=== PATIENT | female | born 1955 | race Caucasian/White ===

== ENCOUNTER 2018-10-29 14:11 | Outpatient (CLI) | payer OTHER | END 2018-10-29 14:12 | disposition home or self-care (01) | LOC: BICMAMMO 14:11 | PROVIDERS: ATTEND Internal Medicine | DX: Z12.31 Encounter for screening mammogram for malignant neoplasm of breast (principal) | CPT/HCPCS: 77063; 77067 ==

== ENCOUNTER 2019-02-21 08:16 | Observation (INO) | payer OTHER ==
[2019-02-21] MEDS ORDERED: Aspirin Chewable 81 MG TAB ONE (08:36)
[2019-02-21] MEDS ORDERED: Morphine 4 MG/ML VIAL ONE (08:36)
[2019-02-21 08:55] LABS: #Basophils 0.2 thou/uL (0.0-0.2); #Eosinphils 0.4 thou/uL (0.0-0.7); #Lymphocytes 1.9 thou/uL (1.20-3.40); #Monocytes 0.9 thou/uL (0.11-0.59); #Neutrophils 6.7 thou/uL (1.40-6.50); %Basophils 1.8 % (0.0-1.0); %Eosinophils 3.6 % (0.0-10.0); %Neutrophils 66.7 % (42.0-75.0); Hemoglobin 13.4 g/dL (12.0-16.0); Mean Corpuscular HGB CONC 32.8 g/dL (32.0-36.0); Mean Corpuscular Hemoglobin 32.8 pg (27.0-31.0); Mean Corpuscular Volume 99.8 fL (78.0-98.0); Mean Platelet Volume 8.3 fL (7.4-10.4); Platelet Count 247 thou/uL (130-400); RBC Distribution Width 12.1 % (11.5-14.5); Red Blood Cell (RBC) Count 4.08 mill/uL (4.20-5.40)
--- NOTE | 2019-02-21 08:57 | RAD ---
EXAM: Chest Two Views 02/21/2019 8:53 AM HISTORY: Chest pain COMPARISON: September 27, 2018 FINDINGS: Heart: Normal in size and contour. Pulmonary vessels: Normal. Costophrenic angles: There is a tiny right pleural effusion Lungs: Chronic lung changes are stable. There are patchy interstitial opacities that appears slightly more prominent in the right lower lobe. Pneumothorax: None. Osseous structures:Stable prominent compression abnormality at T12 is unchanged. There is diffuse ost eopenia. There is a stable left total shoulder prosthesis Additional findings: None. IMPRESSION: Patchy interstitial opacities in the right lower lobe with small right pleural effusion may reflect a n atypical infectious process with small right parapneumonic effusion. Recommend correlation with clinical examination for any symptoms and signs of pneumonia.
[2019-02-21 09:19] LABS: ALT (SGPT) 16 U/L (8-55); AST (SGOT) 25 U/L (5-34); Albumin 4.1 g/dL (3.4-4.8); Alkaline Phosphatase 93 U/L (40-150); Anion Gap 15 mmol/L (10-20); BUN (Urea Nitrogen) 7 mg/dL (9.8-20.1); Bilirubin, Total 0.6 mg/dL (0.2-1.2); CK (CPK) 58 U/L (29-168); Calc. Creatinine Clearance 0 mL/min (70-130); Calcium 9.6 mg/dL (7.8-10.44); Carbon Dioxide 23 mmol/L (23-31); Chloride 96 mmol/L (98-107); Estimated GFR-MDRD Greater than 90; Globulin 3.4 g/dL (2.4-3.5); Glucose 106 mg/dL (80-115); Lipase 20 U/L (8-78); Potassium 4.7 mmol/L (3.5-5.1); Protein, Total 7.5 g/dL (6.0-8.3); Sodium 129 mmol/L (136-145)
[2019-02-21] MEDS ORDERED: cefTRIAXone\\ROCEPHIN 1 GM VIAL ONE (09:42)
[2019-02-21] MEDS ORDERED: Azithromycin 250 MG TAB ONE (09:42)
[2019-02-21] MEDS ORDERED: Sodium Chloride 0.9% 100 ML ONE (09:42)
[2019-02-21 11:58] VITALS: BMI 17.5
[2019-02-21] MEDS: Nitroglycerin 2% Ointment 1 INCH/1 GM Packet TOP SCH ×3 (12:56→23:20)
[2019-02-21 14:14] LABS: Troponin I Less than 0.010 ng/mL (< 0.028)
[2019-02-21] MEDS ORDERED: HYDROcodone/Acetaminophen 7.5/325 mg Tablet PO PRN (14:36)
[2019-02-21] MEDS ORDERED: PROVENTIL INHALER 6.7 G (200 INHALATIONS) INH PRN (14:48)
[2019-02-21] MEDS ORDERED: ALPRAZolam 0.5 MG TAB PO PRN (14:48)
[2019-02-21] MEDS ORDERED: Morphine 2 MG/ML SYRINGE SLOW IVP PRN (15:41)
[2019-02-21] MEDS: HYDROcodone/Acetaminophen 7.5/325 mg Tablet PO PRN ×2 (15:45→20:37)
--- NOTE | 2019-02-21 15:52 | CT ---
CHEST CT WITHOUT CONTRAST: HISTORY: The patient fell last Thursday. Landed on her chest. Chest pain. Evaluate for chest contusion. COMPARISON: None. FINDINGS: Limited evaluation of the mediastinum due to the lack of IV contrast. No mass, lymphadenopathy, or h ematoma. Heart size is within normal limits. There are coronary artery calcifications. Atheroscler osis of a nonaneurysmal aorta. Heart size is normal. No significant pericardial fluid. Visualized upper solid organs are unremarkable. Trachea and central bronchi are patent. Scarring in the lung apices. No pleural effusion or pneumot horax. Dependent atelectatic changes are noted. RIGHT LUNG: No masses or consolidation. LEFT LUNG: No masses or consolidation. Vertebra plana at the inferiormost thoracic vertebral body suggesting a remote severe compression fra cture. Additional thoracic spine fractures are not appreciated. Visualized left and right bony thor ax is unremarkable. Limited evaluation of the left upper ribs due to beam-attenuation artifact from the left humeral prosthesis. No obvious contusion with regards to the anterior chest wall. IMPRESSION: No acute posttraumatic change. POS: [facility]
[2019-02-21 17:39] LABS: Troponin I Less than 0.010 ng/mL (< 0.028)
[2019-02-21] MEDS ORDERED: Lisinopril 20 MG TAB PO SCH (21:00)
[2019-02-21] MEDS ORDERED: Atorvastatin Calcium 20 MG TAB PO SCH (21:00)
--- NOTE | 2019-02-21 21:39 | HP ---
CHIEF COMPLAINT: Chest pain. HISTORY OF PRESENT ILLNESS: This patient is a 63-year-old female, who reports she recently saw her compensation and benefits manager, Dr. Malik, who did a full and thorough evaluation of her, which she reports was completely unremarkable. Reports she had ultrasounds of the heart, carotids, and lower extremities, all of which were unremarkable. The patient reports she was in her usual state of good health until Thursday, at which time she tripped over a trash can, fell onto a [employer] planter which she broke, she hit her chest area and bumped her head. She had a significant amount of pain, in fact her family says she actually passed out momentarily because she was having some much discomfort. She recovered from that and by yesterday was feeling back to normal and did a lot of work around the house including a lot of physical work including sweeping. She went to bed last night feeling well, woke up about 3 o'clock in the morning, having significant pain feeling like someone was behind her and squeezing her around the chest. She got up, put on a bra that was tight for some compression said that helped a little. She took 2 tramadol, which she had at home which did not help at all. She denies any fever or cough and her only difficulty breathing is related to the discomfort she feels with attempting to take a deep breath. REVIEW OF SYSTEMS: All other systems reviewed, all pertinent positives and negatives noted in the history of present illness. PAST MEDICAL HISTORY: Notable for PTSD and asthma. She had a colonoscopy done a couple of weeks ago, which was normal, but they felt she might have aspirated a little bit at that time. I watched her for a couple of hours and she was ultimately discharged to home. PAST SURGICAL HISTORY: Hysterectomy, tubal ligation, and left humeral head fracture repair. FAMILY HISTORY: Mother had heart disease and CVA. SOCIAL HISTORY: The patient smokes 5 cigarettes a day. She drinks 4 to 5 beers per night. Denies drugs. She is . She is full code. Her , Butch, would be her surrogate decision maker should that become necessary. ALLERGIES: NONE. CURRENT MEDICATIONS: 1. Albuterol 2 puffs q.6 p.r.n. 2. Aspirin 81 mg daily. 3. Lexapro 20 mg daily. 4. Escitalopram 10 mg po daily 5. Atorvastatin 20 mg po q hs 6. Alprazolam 0.5 mg po tid p.r.n. 7. Tramadol 50 two po q 6 hours p.r.n. PHYSICAL EXAMINATION: VITAL SIGNS: Blood pressure is 167/78, pulse 84, respirations 17, O2 sats 98% on room air, and temperature is 98.3. GENERAL APPEARANCE: Thin, age-appropriate female. She is in no significant distress. She is awake, alert, and oriented. She does appear to be uncomfortable. HEENT: PERRL. No OP lesions. NECK: Supple and symmetric. HEART: Regular rate and rhythm without murmurs, gallops, or rubs. LUNGS: Clear to auscultation bilaterally with no wheezes or rales. ABDOMEN: Soft, nontender, and nondistended. Positive bowel sounds. EXTREMITIES: No cyanosis, clubbing, or edema. SKIN: She does have some ecchymoses over the right upper extremity and small superficial abrasion on the right forehead. MUSCULOSKELETAL: Reveals significant tenderness to palpation primarily along the parasternal borders bilaterally more so on the right. NEUROLOGIC: The patient appears to be fully intact. No focal deficits. LABORATORY DATA: White count 10, hemoglobin 13.4, platelets 247. Sodium 129, potassium 4.7, chloride 96, CO2 is 23, BUN 7, and creatinine 0.65. LFTs are normal. Troponin negative x2. DIAGNOSTIC DATA: EKG shows no ST-segment elevation with sinus rhythm at 82 beats per minute. Chest x-ray shows what appears to be some possible right lower lobe infiltrate, which by my review is extremely faint. IMPRESSION AND PLAN: 1. Chest pain. This appears to be purely musculoskeletal in nature related to her fall and then likely overdoing her physical activity. Subsequent, it does not appear to be significantly cardiac. The patient will remain on tele and continued another set of enzymes to be certain. She certainly does have risk factors of the smoking and some family history. We will treat her musculoskeletal pain with pain medicines, both IV morphine and p.o. [place]. I will also give some muscle relaxer. She does describe some component of that as well. 2. Possible pneumonia. We will obtain a CT of the chest. I suspect this is actually more pulmonary contusion than infection. She has no white count, fever , or cough and certainly comes on the heels of significant injury. She received Rocephin and azithromycin in the emergency department that will carry her through today. We will not automatically renew any antibiotics until we have a chance to assess it further. 3. Hyponatremia. The patient has a history of hyponatremia on previous visits going back to 2017. She is very slightly lower now, which was then. I will not aggressively intervened on that, could be slightly worse because of the pulmonary contusion causing some SIADH. 4. History of asthma. We will continue with the bronchodilators. 5. History of posttraumatic stress disorder. We will continue with the alprazolam and citalopram. 6. History of hypertension. Continue lisinopril. 7. History of hyperlipidemia. Continue atorvastatin. Job ID: [id number] [facility]
[2019-02-22] MEDS: Cyclobenzaprine 10 MG TAB PO PRN ×2 (02:42→09:13)
[2019-02-22] MEDS: traMADol HCl 50 MG TAB PO PRN ×2 (02:42→09:14)
[2019-02-22] MEDS: Nitroglycerin 2% Ointment 1 INCH/1 GM Packet TOP SCH (06:08)
[2019-02-22 07:01] LABS: #Basophils 0.1 thou/uL (0.0-0.2); #Eosinphils 0.5 thou/uL (0.0-0.7); #Lymphocytes 2.3 thou/uL (1.20-3.40); #Monocytes 1.2 thou/uL (0.11-0.59); #Neutrophils 4.1 thou/uL (1.40-6.50); %Basophils 1.5 % (0.0-1.0); %Eosinophils 5.6 % (0.0-10.0); %Lymphocytes 28.5 % (21.0-51.0); %Monocytes 14.7 % (0.0-10.0); %Neutrophils 49.7 % (42.0-75.0); Hemoglobin 12.2 g/dL (12.0-16.0); Mean Corpuscular HGB CONC 33.6 g/dL (32.0-36.0); Mean Corpuscular Hemoglobin 33.8 pg (27.0-31.0); Mean Platelet Volume 7.8 fL (7.4-10.4); Platelet Count 212 thou/uL (130-400); RBC Distribution Width 11.7 % (11.5-14.5); Red Blood Cell (RBC) Count 3.62 mill/uL (4.20-5.40); White Blood Cell (WBC) Count 8.2 thou/uL (4.8-10.8)
[2019-02-22 07:17] LABS: Anion Gap 11 mmol/L (10-20); BUN (Urea Nitrogen) 5 mg/dL (9.8-20.1); Calc. Creatinine Clearance 73 mL/min (70-130); Calcium 9.3 mg/dL (7.8-10.44); Carbon Dioxide 25 mmol/L (23-31); Chloride 100 mmol/L (98-107); Estimated GFR-MDRD Greater than 90; Glucose 95 mg/dL (80-115); Potassium 4.1 mmol/L (3.5-5.1); Sodium 132 mmol/L (136-145)
--- NOTE | 2019-02-22 08:32 | RAD ---
XR Thoracic Spine 3 V STANDARD History: [Fall with pain] Comparison: Chest CT prior day Findings: Similar appearance of the compression fracture at T12 with near complete anterior height lo ss, vertebral plana. No significant retropulsion. No new superimposed fracture. Bones are osteopenic. Visualized portion of the mediastinum is unremarkable. Impression: No superimposed vertebral fracture. Known T12 vertebral plana.
[2019-02-22] MEDS ORDERED: Aspirin Chewable 81 MG TAB PO SCH (09:00)
[2019-02-22] MEDS ORDERED: Escitalopram Oxalate 10 mg Tablet PO SCH (09:00)
[2019-02-22 11:34] VITALS: BP 115/61; TEMP 97.7
--- NOTE | 2019-02-22 11:59 | DIS ---
DATE OF ADMISSION: 02/21/2019 DATE OF DISCHARGE: 02/22/2019 CHIEF COMPLAINT ON ADMISSION: Chest pain. DISCHARGE DIAGNOSES: 1. Musculoskeletal rib and sternal pain, status post mechanical fall. No acute fracture per CT scans of the chest and rib. 2. Osteoporosis. 3. Coronary heart disease, status post stent of the RCA in 2018, stable. 4. Tobacco abuse. 5. Anxiety/post-traumatic stress disorder, stable. 6. Mild hyponatremia, chronic. BRIEF HOSPITAL COURSE: The patient is a 63-year-old female with past medical history significant for coronary artery disease, status post stent to the RCA in [address] Aidan Malik, hypertension, and osteoporosis, who presented to the hospital after suffering from a mechanical fall 2 days before her arrival to the hospital. The patient states that she was moving a trash can and trying to get around her cats, when she tripped and fell on her chest onto a terracotta pot, breaking the planter, and hitting her head as well. The patient was in a significant amount of pain post fall, but did recover from this and felt almost back to her baseline the next day, where she cleaned the house and did quite a bit of yard work and vacuuming. The patient then went to sleep and when she woke up, she was having significant amount of pain in her chest and bilateral ribs. This was relieved when the patient put on her undergarments and stabilized her ribs. She presented to the hospital for further workup and treatment. Chest x-ray did show possible right lower lobe infiltrate. The patient was afebrile and had no white count. Followup chest CT showed no evidence of any infiltrate, no acute fractures or obvious contusions. Thoracic spine x-ray did show evidence of an old compression fracture at T12, which the patient is aware of. The patient was admitted for pain control and chest pain rule out. ACS was ruled out. The patient has had no exertional chest discomfort, and her pain has been greatly improved with muscle relaxants and tramadol. The patient has ambulated the halls without issue today. CONDITION AT DISCHARGE: Stable. DISCHARGE INSTRUCTIONS AND FOLLOWUP: The patient will follow up with her primary care physician as well as her acid treater as scheduled. She will continue Flexeril for pain control as needed. I have also advised the patient that she can use intermittent hot and cold as well as her [id number] lidocaine patches. The patient understands instructions. Care of this patient has been discussed with Dr. Medina, who agrees with discharge as outlined above. Job ID: [id number]
== END 2019-02-22 11:30 | disposition home or self-care (01) ==
LOC: SCSER 08:16 → ERHOLD 09:43 → 2SW 11:50
PROVIDERS: ADMIT Internal Medicine; ATTEND Internal Medicine
DX: R07.89 Other chest pain (principal); M81.0 Age-related osteoporosis without current pathological fracture; I25.10 Atherosclerotic heart disease of native coronary artery without angina pectoris; E87.1 Hypo-osmolality and hyponatremia; F43.10 Post-traumatic stress disorder, unspecified; F41.9 Anxiety disorder, unspecified; J45.909 Unspecified asthma, uncomplicated; I10 Essential (primary) hypertension; E78.5 Hyperlipidemia, unspecified; F17.210 Nicotine dependence, cigarettes, uncomplicated; Z95.5 Presence of coronary angioplasty implant and graft; Z79.82 Long term (current) use of aspirin; Z79.899 Other long term (current) drug therapy
CPT/HCPCS: 36415; 71046; 71250; 72072; 80048; 80053; 82550; 83690; 84484; 85025; 87040; 93005; 96365; 96375; G0378; J0696; J2270; J3490

== ENCOUNTER 2020-08-01 14:06 | Outpatient (CLI) | payer MEDICARE, OTHER | END 2020-10-22 14:07 | disposition home or self-care (01) | LOC: BICMAMMO 14:06 | PROVIDERS: ATTEND Internal Medicine | DX: Z12.31 Encounter for screening mammogram for malignant neoplasm of breast (principal) | CPT/HCPCS: 77063; 77067 ==

== ENCOUNTER 2021-08-05 10:33 | Outpatient (CLI) | payer MEDICARE | END 2021-08-05 10:34 | disposition home or self-care (01) | LOC: BICMAMMO 10:33 | PROVIDERS: ATTEND Internal Medicine | DX: Z12.31 Encounter for screening mammogram for malignant neoplasm of breast (principal) | CPT/HCPCS: 77063; 77067 ==

== ENCOUNTER 2023-08-18 15:39 | Outpatient (CLI) | payer MEDICARE | END 2023-08-18 15:40 | disposition home or self-care (01) | LOC: SCSRAD 15:39 | PROVIDERS: ATTEND Physician Assistant | DX: M54.50 Low back pain, unspecified (principal) | CPT/HCPCS: 72100 ==